=== PATIENT | female | born 1950 | race Caucasian/White ===

== ENCOUNTER → 2022-07-02 13:49 | Outpatient (CLI) | payer MEDICARE, BC, SELFPAY ==
--- NOTE | 2022-07-02 15:10 | PC.NURSE ---
PFT and 6 Minute Walk test completed without incident. Albuterol 0.083% given via HHN, per protocol, Pt tolerated tx well.
== END ==
PROVIDERS: PCP Nurse Practitioner Family; Visit Provider Internal Medicine Pulmonary Disease
DX: R06.09 Other forms of dyspnea (principal)
CPT/HCPCS: 94060; 94618; 94726; 94729

== ENCOUNTER → 2023-01-12 15:01 | Outpatient (CLI) | payer MEDICARE, BC, SELFPAY ==
--- NOTE | 2023-01-12 15:01 | CT_ITS ---
FINAL REPORT TECHNIQUE: Axial images were obtained from the lung apex to the mid abdomen by computed tomography. Coronal reformatted images were obtained. This study was performed with techniques to keep radiation doses as low as reasonably achievable, (ALARA). Individualized dose reduction techniques using automated exposure control or adjustment of mA and/or kV according to the patient''s size were employed. CLINICAL HISTORY: pulmonary nodule COMPARISON: 07/01/2022 FINDINGS: There is no axillary mass or adenopathy. There is no hilar or mediastinal mass or adenopathy. Heart size is normal. There are severe coronary artery calcifications. There is no pericardial or pleural effusion. Mild scarring is noted. There is mild atelectasis. There is an 8 mm nodule near the right major fissure which is stable. There is a posterior right lower lobe nodule measuring 4 mm which is stable. Calcified granuloma is noted in the left lower lobe. No new mass or nodule identified. There is mild emphysema. Limited images of the upper abdomen demonstrate post cholecystectomy. There is a supraumbilical midline ventral hernia containing nonobstructing transverse colon. Hernia orifice measures 44 mm in transverse diameter. Hernia sac measures 110 mm in transverse diameter. IMPRESSION: Stable pulmonary nodules. Consider additional follow-up in 12 months to evaluate for continued stability. Supraumbilical hernia as above containing nonobstructed transverse colon. Reviewed, Interpreted and Dictated by Jose Juan Posada III, MD Transcribed by Melba Khan Authenticated and [facility]
== END ==
PROVIDERS: PCP Nurse Practitioner Family; Visit Provider Internal Medicine Pulmonary Disease
DX: R91.8 Other nonspecific abnormal finding of lung field (principal)
CPT/HCPCS: 71250

== ENCOUNTER 2023-07-26 11:00 | Outpatient (RCR) | payer MEDICARE, BC, OTHER, SELFPAY | END 2023-09-08 16:34 | disposition home or self-care (01) | LOC: PT 11:00 | PROVIDERS: PCP Nurse Practitioner Family; Visit Provider Orthopaedic Surgery Adult Reconstructive Orthopaedic Surgery | DX: M51.36 Other intervertebral disc degeneration, lumbar region (principal); M47.816 Spondylosis without myelopathy or radiculopathy, lumbar region | CPT/HCPCS: 97010; 97110; 97116; 97140; 97163; 97164 ==

== ENCOUNTER 2024-05-23 11:00 | Outpatient (RCR) | payer MEDICARE, BC, OTHER, SELFPAY | END 2024-05-29 11:31 | disposition home or self-care (01) | LOC: PT 11:00 | PROVIDERS: Visit Provider Orthopaedic Surgery Adult Reconstructive Orthopaedic Surgery | DX: M25.551 Pain in right hip (principal); Z96.641 Presence of right artificial hip joint; Z98.890 Other specified postprocedural states | CPT/HCPCS: 97110; 97112; 97163; 97530 ==

== ENCOUNTER 2024-07-25 09:08 | Outpatient (CLI) | payer MEDICARE, BC, OTHER, SELFPAY ==
--- NOTE | 2024-07-25 09:45 | XR_ITS ---
FINAL REPORT TECHNIQUE: Bone densitometry calculations of the lumbar spine, right forearm and left hip were obtained. CLINICAL HISTORY: SCREENING FINDINGS: Using L1-4, the bone mineral density of the spine is 1.046 g/cm2, corresponding to T-score of 0.0 and a Z score of 2.2. This is within the range of normal. Using the distal third, the bone mineral density of the right forearm is 0.388 g/cm2, corresponding to a T-score of -5.1 and a Z-score of -2.9. This is within the range of osteoporosis. Using the left hip, the bone mineral density of the femoral neck is 0.852 g/cm2, corresponding to a T-score of 0.0 and a Z-score of 1.9. This is within the range of . NOTE: T-score: Standard deviation compared with peak bone mass of young adult mean. *Following the recommendations of the International Society of Bone densitometry, classification of hip BMD is based on the lower of two T-scores; total hip or femoral neck. IMPRESSION: 1. Bone mineral density of the lumbar spine within the range of normal. 2. Bone mineral density of the right forearm within the range of osteoporosis. 3. Bone mineral density of the left hip within the range of normal. Reviewed, Interpreted and Dictated by Monique Teixeira MD Transcribed by Beti Parker Authenticated and [facility]
== END 2024-07-25 23:59 | disposition home or self-care (01) ==
LOC: RAD 09:10
PROVIDERS: PCP Physician Assistant Surgical; Visit Provider Nurse Practitioner Family
DX: M85.831 Other specified disorders of bone density and structure, right forearm (principal); Z13.820 Encounter for screening for osteoporosis
CPT/HCPCS: 77080

== ENCOUNTER 2025-05-02 11:44 | Day surgery (SDC) | payer MEDICARE, SELFPAY ==
[2025-04-26 11:04] VITALS: BMI 41.0
--- NOTE | 2025-05-01 09:48 | EXP.HP ---
History of Present Illness *Admission Date: 05/02/25 *Reason for visit:: Personal history of adenomatous colon polyps *History of present illness: Mrs. Pack is a 74-year-old female who is here for screening colonoscopy. The patient does have a personal history of adenomatous colon polyps. She had a colonoscopy with fl in July 2016 and had 2 polyps (tubular adenoma x 1/hyperplastic polyp x 1) removed. The patient did have a colonoscopy with fl in October 2021 and had a large her 17 to 18 mm ileocecal valve polyp (tubular adenoma) and smaller rectosigmoid polyp (hyperplastic polyp) which were removed. The examination is deemed medically necessary for screening/surveillance colonoscopy. The patient has been seen, interviewed and examined prior to the procedure by both myself and the anesthesia provider. [facility] Disclaimer: The information contained in this section may have been updated after the patient was seen, as this information can be updated by other users. Medical History Diabetes mellitus, type 2 Screening for lung cancer Dyspnea on exertion Allergic rhinitis Nodule of right lung Stopped smoking with greater than 30 pack year history COPD mixed type Surgical History History of hip replacement History of inguinal hernia repair Family History Father Lung cancer Social History Smoking Status: Former smoker alcohol intake: current current occupational status: retired Travel in the last 8 weeks?: None Have you lived/traveled outside [place] in past 30 days?: No Contact w/someone who lives/traveled outside US past 30 days?: No Exposure to someone with infectious disease in past 14 days?: No Do you have a fever (greater than 100.4 F or 38 C)?: No Have you tested positive for COVID-19?: No Exposed to someone with COVID-19 in past 14 days?: No Do you have a sore throat?: No Do you have a cough?: No Do you have any weakness?: No Do you have any diarrhea?: No Are you experiencing any unusual bleeding?: No Do you have any muscle aches/pain?: No Do you have any abdominal pain?: No Are you experiencing loss of taste or smell?: No Other Medical History Have you received the Pneumonia Vaccine: Yes Review of Systems Review of Systems Review of systems (narrative): Negative *Cardiovascular Comments: Negative *Gastrointestinal Comments: Negative *Genitourinary Comments: Negative *Musculoskeletal Comments: Negative *Neurologic Comments: Negative Meds Home Medications and Allergies Home Medications ?Medication ?Instructions ?Recorded ?Confirmed ?Type atorvastatin 20 mg tablet 20 mg PO DAILY 08/13/21 04/26/25 History ezetimibe 10 mg tablet (Zetia) 10 mg PO DAILY 08/13/21 04/26/25 History gabapentin 300 mg capsule 300 mg PO BID 08/13/21 04/26/25 History lisinopril 20 1 tab PO DAILY 08/13/21 04/26/25 History mg-hydrochlorothiazide 25 mg tablet (Zestoretic) pantoprazole 40 mg tablet,delayed 1 tab PO DAILY 08/13/21 04/26/25 History release venlafaxine 75 mg capsule,extended 75 mg PO DAILY 08/13/21 04/26/25 History release 24 hr buspirone 30 mg tablet 30 mg PO BID 11/16/21 04/26/25 History meloxicam 7.5 mg tablet 7.5 mg PO DAILY 10/20/22 04/26/25 History albuterol sulfate 90 mcg/actuation 2 inh inhalation QID PRN shortness 03/29/23 04/26/25 Rx aerosol inhaler of breath or wheezing 90 days #8.5 grams fluticasone propionate 50 2 spray intranasal DAILY 90 days 03/29/23 04/26/25 Rx mcg/actuation nasal #16 grams spray,suspension (Flonase Allergy Relief) montelukast 10 mg tablet 10 mg PO DAILY #90 tabs 03/29/23 04/26/25 Rx (Singulair) amlodipine 10 mg tablet 10 mg PO DAILY #90 tabs 12/19/23 04/26/25 Rx sodium,potassium,mag sulfates 17.5 See Rx Instructions PO .COMPLEX 04/19/25 Rx gram-3.13 gram-1.6 gram oral soln #354 mL (Suprep Bowel Prep Kit) fluticasone fur. 100 mcg-umeclid 1 inh inhalation DAILY 04/26/25 04/26/25 History 62.5 mcg-vilant 25 mcg inhalat.powder (Trelegy Ellipta) New Prescriptions to Start Prescriptions: Allergies Allergy/AdvReac Type Severity Reaction Status Date / Time No Known Allergies Allergy Verified 10/20/22 11:22 Exam *Routine HEENT Exam Head: Present normocephalic Eye: Present EOMI and PERRL ENT: Present mucous membranes moist *Routine Neck Exam Neck: Present supple *Routine Respiratory Exam Respiratory: Present CTA bilaterally *Routine Cardiovascular Exam Cardiovascular: Present RRR *Routine Abdominal Exam Abdominal: Present soft and normoactive bowel sounds; Absent tenderness *Routine Rectal Exam Rectal:: deferred *Routine Genitalia Exam Genitalia:: deferred *Routine Extremities Exam Extremities: Absent cyanosis, clubbing or edema *Routine Skin Exam Skin: Present warm; Absent rash *Routine Neurological Exam Neurological: Present alert and oriented X3 Assessment and Plan *Assessment and plan (1) Personal history of adenomatous and serrated colon polyps: Status: Acute Category: Medical Code(s): Z86.0101 - Personal history of adenomatous and serrated colon polyps Plan A/P: 1. Personal history of adenomatous colon polyps is the preprocedural diagnosis. The patient will be anesthetized/sedated using MAC sedation. The patient has been seen and examined. Cardiac and lung assessment prior to the examination is stable. Proceed with planned screening/surveillance colonoscopy.
[2025-05-02] MEDS: LACTATED RINGERS 1000ML 1,000 ML 50 ML IV (12:00)
[2025-05-02 12:04] VITALS: BP 143/68; PULSE 71; RESP 18; TEMP 36.2; O2SAT 94
--- NOTE | 2025-05-02 12:17 | P.PCN_ITS ---
[facility] Procedure Note Date: 05/02/25 Time: 12:38 Procedure Note:: Colonoscopy Procedure Report: Colonoscopy with cold snare polypectomy Endoscopist: Pankaj Chance II, MD Referring physician: VILMA Benavidez Date of Procedure: May 02, 2025 Equipment: Olympus [id number] adult colonoscope Sedation: MAC sedation Indication: Mrs. Pack is a 74-year-old female who is here for screening colonoscopy. The patient does have a personal history of adenomatous colon polyps. She had a colonoscopy with me in July 2016 and had 2 polyps (tubular adenoma x 1/hyperplastic polyp x 1) removed. The patient did have a colonoscopy with me in October 2021 and had a large her 17 to 18 mm ileocecal valve polyp (tubular adenoma) and smaller rectosigmoid polyp (hyperplastic polyp) which were removed. The patient reports no abdominal pain, weight loss, change in her bowel habits or rectal bleeding. She reports no family history of colon cancer. Procedure: Prior to the procedure, a history and physical exam was performed, and patient's medications and allergies were reviewed. The risks, benefits and alternatives of the sedation and procedure were discussed with the patient. All questions were answered and informed consent was obtained. The patient was brought to the procedure room. Patient identification and proposed procedure were verified by the physician and the nurse. The patient was placed in a left lateral decubitus position and the scope was passed under direct vision. Throughout the procedure, the patient's blood pressure, pulse, and oxygen saturations were monitored continuously. The colonoscopy was accomplished without difficulty. The patient tolerated the procedure well. Findings: On digital rectal examination there was normal rectal tone. There were no external hemorrhoids. The colonoscope was introduced through the anal canal to the rectum and advanced to the cecum. The ileocecal valve and appendiceal orifice were identified. The scope was advanced a short distance into the ileum which appeared grossly normal. The scope was then withdrawn into the colon. The cecum, ascending and transverse colon and mucosa were grossly normal. There were scattered diverticuli throughout the descending and sigmoid colon (LEFT colon). There was a diminutive 3 to 4 mm polyp in the rectosigmoid removed via cold snare polypectomy. The rectum itself was normal. Upon retroflexion within the rectum there were grade 1-2 internal hemorrhoids. The preparation was excellent throughout with [place] Preparation Score of 9. The cecal time was 12 minutes. Impression: 1. Diminutive hyperplastic appearing rectosigmoid polyp 2. Left-sided diverticulosis 3. Grade 1-2 internal hemorrhoids Plan: I will follow-up the polyp histology and discuss with patient and family whether further screening/preventive colonoscopy is warranted.
[2025-05-02 12:19] LABS: POC Glucose,Bedside 111 gm/dL (70-110)
[2025-05-02 12:39] VITALS: BP 111/59; PULSE 63; RESP 16; TEMP 36.1; O2SAT 95
--- NOTE | 2025-05-02 12:44 | EXP.ANES.CKL ---
[facility] Disclaimer: The information contained in this section may have been updated after the patient was seen, as this information can be updated by other users. Medical History Diabetes mellitus, type 2 Screening for lung cancer Dyspnea on exertion Allergic rhinitis Nodule of right lung Stopped smoking with greater than 30 pack year history COPD mixed type Surgical History History of hip replacement History of inguinal hernia repair Family History Father Lung cancer Social History Smoking Status: Former smoker alcohol intake: current substance use type: denies use current occupational status: retired Travel in the last 8 weeks?: None [facility] Anesthesia Checklist Patient Identification Patient Identification: Arm Band Structural Data Admitted From: Home Planned Operative Procedure/s: Colonoscopy Consent for Planned Operative Procedure(s) Verified: Yes Verified Documents: Surgical Consent and History and Physical NPO Status Verified Time NPO: 00:00 Additional verifications Anesthesia Reactions: No Airway Assessment Mallampati Score:: Class II C-Spine Mobility Assessed: Yes TMJ Mobility Assessed: Yes Dentition: Good Dentition Neurological Assessment Level of Consciousness: Awake, Alert and Appropriate Anesthesia Plan Anesthesia Risk discussed: Yes Anesthesia Plan: Verified ASA Class: III Anesthesia Type: MAC
[2025-05-02 12:49] VITALS: BP 133/63; PULSE 61; RESP 16; O2SAT 93
[2025-05-02 12:59] VITALS: BP 146/60; PULSE 62; RESP 18; O2SAT 95
[2025-05-02 13:09] VITALS: BP 130/65; PULSE 61; RESP 18; O2SAT 94
[2025-05-02 13:20] VITALS: BP 130/57; PULSE 63; RESP 18; TEMP 36.1; O2SAT 94
== END 2025-05-02 13:20 | disposition home or self-care (01) ==
PROVIDERS: PCP Nurse Practitioner Family; Visit Provider Internal Medicine Gastroenterology
PROC: 0DJD8ZZ Inspection of Lower Intestinal Tract, Via Natural or Artificial Opening Endoscopic (ICD-10-PCS; CPT 45378; principal; 2025-05-02 13:30)
DX: Z12.11 Encounter for screening for malignant neoplasm of colon (principal); D12.7 Benign neoplasm of rectosigmoid junction; Z86.0101 Personal history of adenomatous and serrated colon polyps; E11.9 Type 2 diabetes mellitus without complications; J44.9 Chronic obstructive pulmonary disease, unspecified; Z87.891 Personal history of nicotine dependence; Z79.899 Other long term (current) drug therapy; Z79.51 Long term (current) use of inhaled steroids
CPT/HCPCS: 45385; 82962; 88305; J2003; J2704; J7120

== ENCOUNTER 2025-05-27 15:00 | Outpatient (RCR) | payer MEDICARE, SELFPAY | END 2025-05-27 23:59 | disposition home or self-care (01) | LOC: PT.CARL 15:00 | PROVIDERS: Visit Provider Orthopaedic Surgery Adult Reconstructive Orthopaedic Surgery | DX: Z47.89 Encounter for other orthopedic aftercare (principal); Z96.642 Presence of left artificial hip joint | CPT/HCPCS: 97110; 97112; 97161; 97530 ==

== ENCOUNTER 2025-06-03 13:55 | Outpatient (RCR) | payer MEDICARE, SELFPAY | END 2025-06-05 09:33 | disposition home or self-care (01) | LOC: PT.CARL 13:55 | PROVIDERS: Visit Provider Orthopaedic Surgery Adult Reconstructive Orthopaedic Surgery | DX: Z47.89 Encounter for other orthopedic aftercare (principal); Z96.642 Presence of left artificial hip joint | CPT/HCPCS: 97110; 97530 ==

== ENCOUNTER 2025-06-26 10:30 | Outpatient (RCR) | payer MEDICARE, SELFPAY | END 2025-06-26 23:59 | disposition home or self-care (01) | LOC: PT.CARL 10:30 | PROVIDERS: Visit Provider Nurse Practitioner Family | DX: M65.4 Radial styloid tenosynovitis [de Quervain] (principal) | CPT/HCPCS: 97035; 97110; 97161; 97530 ==

== ENCOUNTER 2025-07-03 10:28 | Outpatient (RCR) | payer MEDICARE, SELFPAY | END 2025-07-03 23:59 | disposition home or self-care (01) | LOC: PT.CARL 10:28 | PROVIDERS: Visit Provider Nurse Practitioner Family | DX: M65.4 Radial styloid tenosynovitis [de Quervain] (principal) | CPT/HCPCS: 97110 ==